=== PATIENT | male | born 1985 | race Caucasian/White ===

== ENCOUNTER 2020-04-15 22:42 | Emergency (ER) | payer OTHER ==
[~2020-04-15] VITALS: Ht 182.9 cm; Wt 81.7 kg
[2020-04-15] MEDS ORDERED: GABA100 (23:12)
[2020-04-16] MEDS ORDERED: IBUP800 PO (01:36)
== END 2020-04-16 02:00 | disposition home or self-care (01) ==
LOC: ER 22:42
DX: S06.0X9A Concussion with loss of consciousness of unspecified duration, initial encounter (principal); S01.81XA Laceration without foreign body of other part of head, initial encounter; S60.511A Abrasion of right hand, initial encounter; S80.211A Abrasion, right knee, initial encounter; Y04.0XXA Assault by unarmed brawl or fight, initial encounter
CPT/HCPCS: 12032; 70450; 70486; 73562-RT; 99284-25; A9270